=== PATIENT | female | born 1970 | race Caucasian/White ===

== ENCOUNTER 2018-10-26 13:07 | Inpatient (IN) ==
--- NOTE | 2018-10-26 14:48 | Internal Med History&Physical ---
Addendum entered and electronically signed by Keven Gomez MD 10/29/18 10:53: I have personally performed a face to face evaluation on this patient. I have r eviewed and agree with the care plan. History and Exam by me shows: For schedule and/or computer reasons, this note is a late entry. Patient was seen on the date of the initial note. Patient has a left upper extremity weakness because of her right MCA stroke. She has had history and physical reviewed with her. The initial note was not completed upon my departure on Monday. She denies anything but transient speech changes, minimal left facial droop which is now resolved and has improving left upper extremity weakness. The patient states that she has not been taking care of her diabetes and agrees that she must do so, going forward. Patient has no complaint of chest discomfort, dyspnea, orthopnea, breathing problems, palpitations, nausea or vomiting, constipation or diarrhea, other changes in bowel habits, heartburn, difficulty with urination, kidney problems or kidney stones, fevers chills or sweats, rash or itching, seizures, headache or lightheadedness, heat or cold intolerance, blood problems or anemia, or other new complaints, except as mentioned above. Review of systems is otherwise negative. Examination: (Except as mentioned above): General: In no apparent distress, alert and oriented 3. Head: Atraumatic and normocephalic. Eyes: Extraocular muscles are intact, pupils equal round and reactive to light and accommodation. Sclerae anicteric. Ears: External ears are normal to inspection and hearing is grossly normal. Nose: Patent without lesion noted. Mouth: No intraoral lesions seen. Dentition is poor with only a couple of upper teeth and 4 or 5 mandibular teeth in poor repair. Neck: Supple with trachea midline. There is no thyromegaly or adenopathy and carotids are 2+ without bruit heard. Respiratory: No use of accessory muscles. Lungs are clear throughout. Normal airflow. Cardiovascular: Regular rate and rhythm without murmur appreciated. Abdomen: Bowel sounds are normal. No hepatosplenomegaly masses or tenderness. Obese and therefore difficult to palpate deeply. Extremities: No cyanosis clubbing or edema. Neurological: A and O 3. Cranial nerves II through XII are intact. She has minimal weakness of her left lower extremity but left upper extremity is 3 out of 5 to grasp, dorsiflexion, extension. Skin: Warm and non-diaphoretic with no lesions noted. Breasts, pelvic and rectal: Not examined. We will begin therapies and assessment, as planned. We will continue her current regimen for prevention, follow diabetes, blood pressure, etc. Original Note: Date of Encounter: 10/26/18 Time of Encounter: 14:46 Assessment and Plan (1) CVA (cerebral vascular accident) Current visit: Yes Status: Acute Patient presents with a right MCA CVA with a left hemiparesis residual. Per medical records patient's strength has increased somewhat to her left upper extremity which remains 3+/5 for muscle strength. Left leg is about 4/5. Patient's right extremities are 5/5 muscle strength. No hyperreflexia. No acute neurological changes per medical records. Physical therapy evaluation pending. Continue with current plan of care. Qualifiers: CVA mechanism: unspecified Qualified Code(s): I63.9 - Cerebral infarction, unspecified (2) HTN (hypertension) Current visit: Yes Status: Acute Vital signs are stable. We will continue with current medications. We will continue to monitor Qualifiers: Hypertension type: essential hypertension Qualified Code(s): I10 - Essential (primary) hypertension (3) Diabetes Current visit: Yes Status: Acute Patient with a history of diabetes type 2. Questionable compliance as patient had a admission A1c of 14. We will continue patient on current insulin orders from [facility] and we will continue to monitor blood sugars to fingersticks before meals and at bedtime with sliding scale coverage. 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 QUINTEROS is a 48 year old female , who was transferred from [facility] after being treated for an acute right MCA CVA. Patient continues with left hemiparesis as a residual. On presentation to [facility], patient had slurred speech but currently her speech is clear and appropriate patient denies any difficulty with swallow. Patient currently appears relaxed and denies any current discomforts or shortness of breath. Per medical records patient's recovery at [facility] was uneventful except for some difficulty titrating her diabetic medications. On presentation to [facility] patient had a A1c of 14 and stated that she high glucose at home, greater than 300. Patient states a history of hypertension and otherwise has been in good health. Patient was admitted to our facility for rehabilitation secondary to weakness from her CVA and for rehabilitation of her left hemiparesis. Past Med Surg Social Fam HX - Past Medical History Source: patient Medical history: diabetes, hypertension Psychiatric history: no psych history - Past Surgical History Surgical History: no surgical history - Social History Smoking Status: Never smoker Smokeless Tobacco Status: No Alcohol use: none Drug use: none Current living situation: Home, With Family Activity Level: Independent ambulation Recent Out of Country Travel Within the Last 8 Weeks: No Exposure or Possible Exposure to Illness During Travel: No All Systems PM: A 10-system review of systems was performed and is negative for pertinent findings except as documented above in the HPI. - Constitutional Constitutional: as per HPI, no chills, no fever(s), no night sweats - EENT Eyes: as per HPI, no change in vision, no discharge, no pain, no photophobia Ears: as per HPI, no ear discharge, no ear pain, no tinnitus Nose, mouth and throat: no dysphagia, no nasal discharge, no neck pain, no sore throat - Breasts Breasts: as per HPI - Cardiovascular Cardiovascular ROS IM: as per HPI, no chest pain, no diaphoresis, no dyspnea, no lightheadedness, no palpitations, no syncope - Respiratory Respiratory: as per HPI, no cough, no dyspnea, no wheezing, no excessive phlegm production - Gastrointestinal Gastrointestinal: as per HPI, no abdominal pain, no diarrhea, no hematemesis, no hematochezia, no melena, no nausea, no vomiting - Genitourinary Genitourinary: as per HPI, no change in urinary stream, no dysuria, no flank pain, no hematuria - Musculoskeletal Musculoskeletal ROS IM: as per HPI, no numbness, no tingling - Integumentary Integumentary IM: as per HPI, no rash, no unusual bruising - Neurological Neurological ROS: as per HPI, no confusion, no convulsions, no focal weakness, no numbness, no tingling, no tremor(s) - Psychiatric Psychiatric: as per HPI - Hematologic/Lymphatic Hematologic/Lymphatic: no easy bruising - Constitutional General appearance: Present: A&O X 3, pleasant - Head Head exam: Present: atraumatic, normocephalic - Eye Eye exam: Present: PERRL, conjuntiva pink, sclera anicteric Pupils: Present: PERRL Additional comments: left eye blindness - Neck Neck exam general surgery: Present: supple, trachea midline. Absent: lymphaden opathy - Respiratory Respiratory exam: Present: CTAB. Absent: accessory muscle use, rales, rhonchi, wheezes - Cardiovascular Cardiovascular exam: Present: RRR, +S1, +S2. Absent: diastolic murmur, gallop, rubs, systolic murmur - GI/Abdominal GI/Abdominal exam: Present: normal bowel sounds, soft, no peritoneal signs. Absent: distended, tenderness - Extremities Exam Extremities exam: Present: warm, radial pulses palpable and symmetrical. A bsent: calf tenderness, cyanotic, pedal edema - Neurological Exam Neurological exam: Present: CN II-XII intact, oriented X3, pronater drift. Absent: facial droop, speech deficit Additional comments: Left hemiparesis with LUE 3+/5 and LLE 4/5. RE 5/5 MS. Left eye blindness. - Skin Skin exam: Present: dry, intact
[2018-10-26] MEDS ORDERED: D5% in Water 1,000 ML IVC PRN (15:25)
[2018-10-26] MEDS ORDERED: *HR* Dextrose 50 % in Water (Syg) 50 ML SYRINGE IVP PRN (15:25)
[2018-10-26] MEDS ORDERED: Dextrose Gel 15 GM/37.5 ML TUBE PO PRN ×2 (15:25)
[2018-10-26] MEDS: Insulin LISPRO 300 UNITS/3 ML VIAL SQ SCH ×4 (17:15→21:10)
[2018-10-26] MEDS: *HR* Metformin 500 MG TABLET PO SCH (17:16)
[2018-10-27] MEDS: *HR* Enoxaparin 40 MG/0.4 ML SYRINGE SQ SCH (05:31)
[2018-10-27 07:28] LABS: Basophils % 0.6 %; Eosinophils # 0.4 K/mcL (0.0-0.6); Eosinophils % 5.5 %; Hematocrit 32.4 % (35.3-44.9); Hemoglobin 10.7 g/dL (11.5-15.4); Immature Granulocytes % 0.3 % (0-4); Lymphocytes # 1.8 K/mcL (0.6-4.6); Lymphocytes % 26.9 %; Mean Corpuscular Hemoglobin 27.4 pg (28.0-33.3); Mean Corpuscular Volume 83.1 fL (83.0-100.0); Mean Platelet Volume 9.2 fL (9.4-12.4); Monocytes # 0.4 K/mcL (0.0-1.3); Monocytes % 6.5 %; Neutrophils # 4.1 K/mcL (1.6-8.9); Platelet Count 233 K/mcL (140-400); Red Cell Distribution Width 13.2 % (11.5-14.5); Segmented Neutrophils % 60.2 %
[2018-10-27 07:32] LABS: Prothrombin Time 10.8 Seconds (9.4-12.1)
[2018-10-27 07:35] LABS: Activated Partial Thrombo Time 32.7 Seconds (26.0-36.0)
[2018-10-27 07:42] LABS: BUN/Creatinine Ratio 21 (6-26); Blood Urea Nitrogen 12 mg/dL (6-20); Carbon Dioxide 26 mEq/L (23-29); Chloride 101 mEq/L (98-107); Glucose 235 mg/dL (70-105); Osmolality,Calculated 281 (280-300); Potassium 3.7 mEq/L (3.5-5.1); Sodium 132 mEq/L (136-145); eGFR For Non-African Americans > 60 (> 60)
[2018-10-27] MEDS: *HR* Metformin 500 MG TABLET PO SCH ×2 (08:11→16:51)
[2018-10-27] MEDS: Insulin LISPRO 300 UNITS/3 ML VIAL SQ SCH ×8 (08:11→21:21)
[2018-10-27] MEDS: Lisinopril 20 MG TABLET PO SCH (08:11)
[2018-10-27] MEDS: Aspirin 81 MG TAB.CHEW PO SCH (08:11)
[2018-10-27] MEDS ORDERED: Insulin DETEMIR 100 UNIT/ML X5UNITS SQ SCH (09:00)
[2018-10-27] MEDS ORDERED: Acetaminophen 325 MG TABLET PO ONE (13:09)
--- NOTE | 2018-10-27 15:24 | Internal Med Progress Note ---
Date of Encounter: 10/27/18 Time of Encounter: 15:00 - Assessment and plan (1) CVA (cerebral vascular accident) Current Visit: Yes Status: Acute Assessment and plan: Patient presents with a right MCA CVA with a left hemiparesis residual. Per medical records patient's strength has increased somewhat to her left upper extremity which remains 3+/5 for muscle strength. Left leg is about 4/5. Patient's right extremities are 5/5 muscle strength. No hyperreflexia. No acute neurological changes per medical records. Continue working with therapists and current plan of care. Qualifiers: CVA mechanism: unspecified Qualified Code(s): I63.9 - Cerebral infarction, unspecified (2) HTN (hypertension) Current Visit: Yes Status: Chronic Assessment and plan: Continue current meds. Qualifiers: Hypertension type: essential hypertension Qualified Code(s): I10 - Essential (primary) hypertension (3) Diabetes Current Visit: Yes Status: Chronic Assessment and plan: Patient with a history of diabetes type 2, likely uncontrolled given admission A1c of 14. Remains overall hyperglycemic here, so will increase insulin detemir to 45 units daily (from 40) and continue SSI + glucose monitoring ACHS. 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 - Time Spent With Patient less than 15 minutes - Subjective Interval history: Doing well. Worked with therapists. No concern. - Constitutional Vitals: Temp Pulse Resp BP Pulse Ox 97.8 F 97 16 129/76 99 10/27/18 06:48 10/27/18 06:56 10/27/18 06:56 10/27/18 06:56 10/27/18 06:56 General appearance: Present: A&O X 3, pleasant Exam: Gen: A&Ox3, NAD. HEENT: NCAT. Neck: No palpable lymphadenopathy or thyromegaly. CV: RRR, S1S2. No murmur. Capillary refill < 2 seconds. Pulm: CTAB. Abd: (+)BS. NDNT. Neuro: Left-sided weakness, otherwise non-focal. Skin: No rash. Ext: No pitting edema. Internal Medicine: Result - Labs CBC & Chem 7: 10/27/18 07:10 10/27/18 07:10 Labs: Short CBC 10/27/18 Range/Units 07:10 WBC 6.7 (4.3-11.1) K/mcL Hgb 10.7 L (11.5-15.4) g/dL Hct 32.4 L (35.3-44.9) % Plt Count 233 (140-400) K/mcL Neutrophils # 4.1 (1.6-8.9) K/mcL BMP 10/27/18 07:10 Sodium 132 L Potassium 3.7 Chloride 101 Carbon Dioxide 26 BUN 12 Creatinine 0.56 L Glucose 235 H Calcium 9.0 - ABG Interpretation ABG results: PT/INR, D-dimer PT 10.8 Seconds (9.4-12.1) 10/27/18 07:10 Consult Discharge Plan - Plan Referrals: NONE,PCP [Primary Care Provider] -
[2018-10-28] MEDS ORDERED: Ondansetron ODT 4 MG TAB.RAPDIS SL ONE (00:35)
[2018-10-28] MEDS: *HR* Enoxaparin 40 MG/0.4 ML SYRINGE SQ SCH (05:55)
[2018-10-28 07:06] LABS: Hematocrit 32.3 % (35.3-44.9); Hemoglobin 10.6 g/dL (11.5-15.4); Mean Corpuscular HGB Conc 32.8 g/dL (31.6-35.5); Mean Corpuscular Hemoglobin 27.4 pg (28.0-33.3); Mean Corpuscular Volume 83.5 fL (83.0-100.0); Mean Platelet Volume 9.4 fL (9.4-12.4); Platelet Count 225 K/mcL (140-400); Red Blood Count 3.87 M/mcL (3.82-4.97); Red Cell Distribution Width 13.2 % (11.5-14.5)
[2018-10-28 07:30] LABS: Albumin 3.7 g/dL (3.5-5.7); Albumin/Globulin Ratio 1.6 (1.1-2.2); Bilirubin,Direct 0.1 mg/dL (0.0-0.2); Bilirubin,Indirect 0.3 mg/dL (0.0-1.2); Bilirubin,Total 0.4 mg/dL (0.3-1.0); Globulin 2.3 g/dL (2.4-3.5)
[2018-10-28] MEDS: Aspirin 81 MG TAB.CHEW PO SCH (08:02)
[2018-10-28] MEDS: Lisinopril 20 MG TABLET PO SCH (08:02)
[2018-10-28] MEDS: *HR* Metformin 500 MG TABLET PO SCH ×2 (08:02→16:45)
[2018-10-28] MEDS: Insulin LISPRO 300 UNITS/3 ML VIAL SQ SCH ×8 (08:03→20:27)
[2018-10-28] MEDS: Insulin DETEMIR 100 UNIT/ML X5UNITS SQ SCH (08:03)
--- NOTE | 2018-10-28 13:05 | Internal Med Progress Note ---
Date of Encounter: 10/28/18 Time of Encounter: 12:00 - Assessment and plan (1) CVA (cerebral vascular accident) Current Visit: Yes Status: Acute Assessment and plan: Patient presents with a right MCA CVA with a left hemiparesis residual. Per medical records patient's strength has increased somewhat to her left upper extremity which remains 3+/5 for muscle strength. Left leg is about 4/5. Patient's right extremities are 5/5 muscle strength. No hyperreflexia. No acute neurological changes per medical records. Continue working with therapists and current plan of care. Qualifiers: CVA mechanism: unspecified Qualified Code(s): I63.9 - Cerebral infarction, unspecified (2) HTN (hypertension) Current Visit: Yes Status: Chronic Assessment and plan: Continue current meds. Qualifiers: Hypertension type: essential hypertension Qualified Code(s): I10 - Essential (primary) hypertension (3) Diabetes Current Visit: Yes Status: Chronic Assessment and plan: Patient with a history of diabetes type 2, likely uncontrolled given admission A1c of 14. Remains overall hyperglycemic here, so will increasd insulin detemir to 45 units today (from 40) and continue SSI + glucose monitoring ACHS. 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 Continue to monitor as appropriate. - Time Spent With Patient less than 15 minutes - Subjective Interval history: Doing well. Worked with therapists. No concern. - Constitutional Vitals: Temp Pulse Resp BP Pulse Ox 98.1 F 106 17 109/71 97 10/28/18 07:03 10/28/18 07:03 10/28/18 07:03 10/28/18 07:03 10/28/18 07:03 General appearance: Present: A&O X 3, pleasant Exam: Gen: A&Ox3, NAD. HEENT: NCAT. Neck: No palpable lymphadenopathy or thyromegaly. CV: RRR, S1S2. No murmur. Capillary refill < 2 seconds. Pulm: CTAB. Abd: (+)BS. NDNT. Neuro: Left-sided weakness, otherwise non-focal. Skin: No rash. Ext: No pitting edema. Internal Medicine: Result - Labs CBC & Chem 7: 10/28/18 06:55 10/27/18 07:10 Labs: Short CBC 10/28/18 Range/Units 06:55 WBC 7.8 (4.3-11.1) K/mcL Hgb 10.6 L (11.5-15.4) g/dL Hct 32.3 L (35.3-44.9) % Plt Count 225 (140-400) K/mcL Liver Function 10/28/18 Range/Units 06:55 Total Bilirubin 0.4 (0.3-1.0) mg/dL Direct Bilirubin 0.1 (0.0-0.2) mg/dL AST 15 (13-39) Units/L ALT 13 (7-52) Units/L Alkaline Phosphatase 67 (34-104) Units/L Albumin 3.7 (3.5-5.7) g/dL - ABG Interpretation ABG results: PT/INR, D-dimer PT 10.8 Seconds (9.4-12.1) 10/27/18 07:10 Consult Discharge Plan - Plan Referrals: NONE,PCP [Primary Care Provider] -
[2018-10-29] MEDS: *HR* Enoxaparin 40 MG/0.4 ML SYRINGE SQ SCH (04:18)
[2018-10-29] MEDS: Ondansetron ODT 4 MG TAB.RAPDIS SL PRN ×2 (04:51→19:31)
[2018-10-29 06:55] LABS: BUN/Creatinine Ratio 27 (6-26); Blood Urea Nitrogen 17 mg/dL (6-20); Calcium 8.5 mg/dL (8.6-10.3); Carbon Dioxide 24 mEq/L (23-29); Chloride 102 mEq/L (98-107); Glucose 192 mg/dL (70-105); Osmolality,Calculated 283 (280-300); Potassium 4.2 mEq/L (3.5-5.1); Sodium 133 mEq/L (136-145); eGFR For Non-African Americans > 60 (> 60)
[2018-10-29 07:36] LABS: Basophils % 0.3 %; Eosinophils # 0.3 K/mcL (0.0-0.6); Eosinophils % 3.5 %; Hematocrit 32.9 % (35.3-44.9); Hemoglobin 10.8 g/dL (11.5-15.4); Immature Granulocytes % 0.4 % (0-4); Lymphocytes % 20.7 %; Mean Corpuscular HGB Conc 32.8 g/dL (31.6-35.5); Mean Corpuscular Hemoglobin 27.6 pg (28.0-33.3); Mean Corpuscular Volume 83.9 fL (83.0-100.0); Mean Platelet Volume 9.7 fL (9.4-12.4); Monocytes # 0.5 K/mcL (0.0-1.3); Monocytes % 5.7 %; Neutrophils # 6.6 K/mcL (1.6-8.9); Platelet Count 270 K/mcL (140-400); Red Blood Count 3.92 M/mcL (3.82-4.97); Red Cell Distribution Width 13.4 % (11.5-14.5); Segmented Neutrophils % 69.4 %
[2018-10-29] MEDS: *HR* Metformin 500 MG TABLET PO SCH ×3 (08:40→23:32)
[2018-10-29] MEDS: Lisinopril 20 MG TABLET PO SCH (08:41)
[2018-10-29] MEDS: Aspirin 81 MG TAB.CHEW PO SCH (08:41)
[2018-10-29] MEDS: Insulin LISPRO 300 UNITS/3 ML VIAL SQ SCH ×8 (08:42→21:10)
--- NOTE | 2018-10-29 10:34 | Internal Med Progress Note ---
Addendum entered and electronically signed by Keven Gomez MD 10/29/18 13:15: I have personally performed a face to face evaluation on this patient. I have r eviewed and agree with the care plan. History and Exam by me shows: Patient with a bowel 12-18 hours of nausea, emesis, diarrhea. I told her that I suspect this is food intolerance or intestinal "flu." Because she is having loose bowel movements, we will check a C. difficile. If this is negative, she can come out of isolation. She feels that her strength is continuing to improve and her left extremities. She denies melena or hematochezia, abdominal pain, fever, chills, etc. Discussed care with other providers and/or nursing. Patient has no complaint of chest discomfort, dyspnea, orthopnea, palpitations, nausea or vomiting, constipation or diarrhea, other changes in bowel habits, difficulty with urination, rash or itching, or other new complaints, except as mentioned above. Review of systems is otherwise negative. Examination: (Except as mentioned above): General: In no apparent distress. Alert and oriented 3. Nondiaphoretic. Head: Atraumatic and normocephalic. Respiratory: No use of accessory muscles. Lungs are clear throughout. Normal airflow. Cardiovascular: Regular rate and rhythm without murmur appreciated. Abdomen: Bowel sounds are normal. No hepatosplenomegaly mass or tenderness appreciated. Obese and therefore difficult to palpate deeply. Extremities: No cyanosis clubbing or edema. Skin: Warm and non-diaphoretic with no new lesions noted. Neurologically, she still has left weakness but this is improved especially in the upper extremity, versus 3 days ago. Original Note: Date of Encounter: 10/29/18 Time of Encounter: 10:32 - Assessment and plan (1) Nausea Current Visit: Yes Status: Acute Assessment and plan: Continue Zofran as needed. Will monitor. (2) CVA (cerebral vascular accident) Current Visit: Yes Status: Acute Assessment and plan: Patient here for right MCA CVA with left hemiparesis. Continue PT and OT. Will follow progress. No new neurological deficits at this time. Follow up with neurology as scheduled. Qualifiers: CVA mechanism: unspecified Qualified Code(s): I63.9 - Cerebral infarction, unspecified (3) HTN (hypertension) Current Visit: Yes Status: Chronic Assessment and plan: Controlled with current medication. Monitor blood pressure. Qualifiers: Hypertension type: essential hypertension Qualified Code(s): I10 - Essential (primary) hypertension (4) Diabetes Current Visit: Yes Status: Chronic Assessment and plan: Controlled with insulin. Monitor fingerstick blood sugar. Will adjust medicines as necessary. 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 Also insulin-dependent diabetic. Complaining of nausea and diarrhea today. States she was able to eat small amount of breakfast. Is currently resting in bed. Denies fever, chills, shortness of breath, chest pain, abdominal pain. Denies any new neurological deficits. - Constitutional Vitals: Temp Pulse Resp BP Pulse Ox 98.0 F 92 18 104/62 98 10/29/18 08:26 10/29/18 08:26 10/29/18 08:26 10/29/18 08:26 10/29/18 08:26 General appearance: Present: cooperative, A&O X 3, pleasant, no acute distress, answers questions appropriately - Head Head exam: Present: atraumatic, normocephalic - Eye Eye exam: Present: PERRL, conjuntiva pink, sclera anicteric Pupils: Present: PERRL - Neck Neck exam general surgery: Present: supple, trachea midline. Absent: lymphadenopathy - Respiratory Respiratory exam: Present: CTAB. Absent: accessory muscle use, rales, rhonchi, wheezes - Cardiovascular Cardiovascular exam: Present: RRR, +S1, +S2. Absent: diastolic murmur, gallop, rubs, systolic murmur - GI/Abdominal GI/Abdominal exam: Present: normal bowel sounds, soft, no peritoneal signs. Absent: distended, tenderness - Extremities Exam Extremities exam: Present: warm, radial pulses palpable and symmetrical. Absent: calf tenderness, cyanotic, pedal edema Additional comments: Left upper extremity strength to\\5, left lower extremity for\\5 - Neurological Exam Neurological exam: Present: CN II-XII intact, oriented X3, no focal deficits. Absent: pronater drift, facial droop, speech deficit - Skin Skin exam: Present: dry, intact Internal Medicine: Result - Labs CBC & Chem 7: 10/29/18 06:34 10/29/18 06:34 Labs: Short CBC 10/29/18 Range/Units 06:34 WBC 9.5 (4.3-11.1) K/mcL Hgb 10.8 L (11.5-15.4) g/dL Hct 32.9 L (35.3-44.9) % Plt Count 270 (140-400) K/mcL Neutrophils # 6.6 (1.6-8.9) K/mcL BMP 10/29/18 06:34 Sodium 133 L Potassium 4.2 Chloride 102 Carbon Dioxide 24 BUN 17 Creatinine 0.63 Glucose 192 H Calcium 8.5 L - ABG Interpretation ABG results: PT/INR, D-dimer PT 10.8 Seconds (9.4-12.1) 10/27/18 07:10 Consult Discharge Plan - Plan Referrals: NONE,PCP [Primary Care Provider] -
[2018-10-29] MEDS: Insulin DETEMIR 100 UNIT/ML X5UNITS SQ SCH ×2 (13:57→21:10)
[2018-10-30] MEDS: *HR* Enoxaparin 40 MG/0.4 ML SYRINGE SQ SCH (05:48)
[2018-10-30] MEDS: Insulin LISPRO 300 UNITS/3 ML VIAL SQ SCH ×8 (07:53→21:19)
[2018-10-30] MEDS: Aspirin 81 MG TAB.CHEW PO SCH (10:21)
[2018-10-30] MEDS: Lisinopril 20 MG TABLET PO SCH (10:21)
--- NOTE | 2018-10-30 11:29 | Internal Med Progress Note ---
Date of Encounter: 10/30/18 Time of Encounter: 11:27 - Assessment and plan (1) CVA (cerebral vascular accident) Current Visit: Yes Status: Acute Assessment and plan: We will continue therapies as planned. She is making progress in current deficits. Qualifiers: CVA mechanism: unspecified Qualified Code(s): I63.9 - Cerebral infarction, unspecified (2) HTN (hypertension) Current Visit: Yes Status: Chronic Assessment and plan: Adequate control. Will follow. Qualifiers: Hypertension type: essential hypertension Qualified Code(s): I10 - Essential (primary) hypertension (3) Diabetes Current Visit: Yes Status: Chronic Assessment and plan: Patient is doing reasonably well. We will continue sliding scale insulin and fo llow. 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 (5) Normocytic anemia Current Visit: Yes Status: Acute Assessment and plan: Stable. Vital signs tolerating. - Subjective Interval history: Patient is feeling much better than yesterday. GI complaints including nausea and diarrhea have totally resolved. She has no other problems including no abdominal pain fever or chills. Patient has no complaint of chest discomfort, dyspnea, orthopnea, palpitations, nausea or vomiting, constipation or diarrhea, other changes in bowel habits, difficulty with urination, rash or itching, or other new complaints, except as mentioned above. Review of systems is otherwise negative. I discussed management of her care with nursing staff. - Constitutional Vitals: Temp Pulse Resp BP Pulse Ox 98.4 F 88 16 116/72 100 10/30/18 07:00 10/30/18 07:00 10/30/18 07:00 10/30/18 07:00 10/30/18 07:00 Exam: Examination: (Except as mentioned above): General: In no apparent distress. Alert and oriented 3. Nondiaphoretic. Head: Atraumatic and normocephalic. Respiratory: No use of accessory muscles. Lungs are clear throughout. Normal airflow. Cardiovascular: Regular rate and rhythm without murmur appreciated. Abdomen: Bowel sounds are normal. No hepatosplenomegaly mass or tenderness appreciated. Obese and therefore difficult to palpate deeply. Patient is examined upright at bedside and this also limits exam. Extremities: No cyanosis clubbing or edema. Skin: Warm and non-diaphoretic with no new lesions noted. Neurologically, the patient continues to progress with increased strength in her upper extremity. Internal Medicine: Result - Labs CBC & Chem 7: 10/29/18 06:34 10/29/18 06:34 - ABG Interpretation ABG results: PT/INR, D-dimer PT 10.8 Seconds (9.4-12.1) 10/27/18 07:10 Consult Discharge Plan - Plan Referrals: NONE,PCP [Primary Care Provider] -
[2018-10-30] MEDS: *HR* Metformin 500 MG TABLET PO SCH (17:01)
[2018-10-30] MEDS: Insulin DETEMIR 100 UNIT/ML X5UNITS SQ SCH (21:18)
[2018-10-31] MEDS: *HR* Enoxaparin 40 MG/0.4 ML SYRINGE SQ SCH (03:21)
[2018-10-31] MEDS: *HR* Metformin 500 MG TABLET PO SCH ×2 (07:12→16:24)
[2018-10-31] MEDS: Aspirin 81 MG TAB.CHEW PO SCH (07:55)
[2018-10-31] MEDS: Lisinopril 20 MG TABLET PO SCH (07:55)
[2018-10-31] MEDS: Insulin LISPRO 300 UNITS/3 ML VIAL SQ SCH ×8 (07:56→22:18)
--- NOTE | 2018-10-31 10:07 | Internal Med Progress Note ---
Addendum entered and electronically signed by Keven Gomez MD 10/31/18 12:57: I have personally performed a face to face evaluation on this patient. I have r eviewed and agree with the care plan. History and Exam by me shows: This may be a duplicated because I dictated this note earlier in the day. Patient is pleased that she is getting more function out of left upper and left lower extremity. She has not had diarrhea or nausea, today. She is feeling like she is improved, in general. Discussed care with other providers and/or nursing. Patient has no complaint of chest discomfort, dyspnea, orthopnea, palpitations, nausea or vomiting, constipation or diarrhea, other changes in bowel habits, difficulty with urination, rash or itching, or other new complaints, except as mentioned above. Review of systems is otherwise negative. Examination: (Except as mentioned above): General: In no apparent distress. Alert and oriented 3. Nondiaphoretic. Head: Atraumatic and normocephalic. Respiratory: No use of accessory muscles. Lungs are clear throughout. Normal airflow. Cardiovascular: Regular rate and rhythm without murmur appreciated. Abdomen: Bowel sounds are normal. No hepatosplenomegaly mass or tenderness appreciated. Obese and therefore difficult to palpate deeply. Patient is examined upright in chair and this also limits exam. Extremities: No cyanosis clubbing or edema. Skin: Warm and non-diaphoretic with no new lesions noted. Neurologically, she still has left upper extremity weakness but clumsiness persists markedly. ADDENDUM: Therapy expresses concern that patient is itching more and areas which previously had been closed are now opening again. She is to have repeat treatment of her scabies a week after her initial treatment. For this reason, we will prescribe permethrin lotion. Original Note: Date of Encounter: 10/31/18 Time of Encounter: 10:06 - Assessment and plan (1) CVA (cerebral vascular accident) Current Visit: Yes Status: Acute Assessment and plan: No acute issues. Recent neurological exam remains unchanged although patient does seem to have a slightly improved strength to her left upper extremity, which remains at 4/5 muscle strength. He has been ambulating with assistance of a 4 pronged cane. States that therapy has been progressing well. We will continue with current plan of care and medications. Qualifiers: CVA mechanism: unspecified Qualified Code(s): I63.9 - Cerebral infarction, unspecified (2) HTN (hypertension) Current Visit: Yes Status: Chronic Assessment and plan: Patient's vital signs have remained stable. We will continue with current medications. Qualifiers: Hypertension type: essential hypertension Qualified Code(s): I10 - Essential (primary) hypertension (3) Diabetes Current Visit: Yes Status: Chronic Assessment and plan: Patient's diabetes remains uncontrolled currently. Patient continues on sliding scale insulin and Levemir for long acting. Patient's metformin has continued to be held due to patient's diarrhea. Labs shows negative for C. difficile. Will evaluate either that patient will have her metformin restarted or will substi tute a similar oral medication. Qualifiers: Diabetes mellitus type: other specified (including CONNOR) Diabetes mellitus nursing home insulin use: unspecified nursing home insulin use status Diabetes mellitus complication status: with unspecified complications Qualified Code(s): E13.8 - Other specified diabetes mellitus with unspecified complications - Time Spent With Patient less than 15 minutes - Subjective Interval history: Patient appears relaxed and currently denies any discomforts or shortness of breath. Patient states that she feels her strength on her left arm has been improving. Patient states that physical therapy has been progressing well. No issues have been reported from nursing or therapy. - Constitutional Vitals: Temp Pulse Resp BP Pulse Ox 97.8 F 93 16 115/63 98 10/31/18 06:53 10/31/18 06:53 10/31/18 06:53 10/31/18 06:53 10/31/18 06:53 General appearance: Present: cooperative, A&O X 3, pleasant, no acute distress, answers questions appropriately - Head Head exam: Present: atraumatic, normocephalic - Eye Eye exam: Present: PERRL, conjuntiva pink, sclera anicteric Pupils: Present: PERRL - Neck Neck exam general surgery: Present: supple, trachea midline. Absent: lymphadenopathy - Respiratory Respiratory exam: Present: CTAB. Absent: accessory muscle use, rales, rhonchi, wheezes - Cardiovascular Cardiovascular exam: Present: RRR, +S1, +S2. Absent: diastolic murmur, gallop, rubs, systolic murmur - GI/Abdominal GI/Abdominal exam: Present: normal bowel sounds, soft, no peritoneal signs. Absent: distended, tenderness - Extremities Exam Extremities exam: Present: warm, radial pulses palpable and symmetrical. Absent: calf tenderness, cyanotic, pedal edema - Neurological Exam Neurological exam: Present: CN II-XII intact, oriented X3. Absent: pronater drift, facial droop, speech deficit Additional comments: Patient continues with left hemiparesis with left upper extremity and 4/5 muscle strength for proximal/distal on flexion/extension. Patient's right extremities are 5/5 muscle strength. - Skin Skin exam: Present: dry, intact Internal Medicine: Result - Labs CBC & Chem 7: 10/29/18 06:34 10/29/18 06:34 - ABG Interpretation ABG results: PT/INR, D-dimer PT 10.8 Seconds (9.4-12.1) 10/27/18 07:10 Consult Discharge Plan - Plan Referrals: NONE,PCP [Primary Care Provider] -
--- NOTE | 2018-10-31 10:18 | Psychological Evaluation ---
Date of Encounter: 10/31/18 Time of Encounter: 09:30 History of Present Illness History of present illness: Ms. Roy is a 48 year old female who was transferred from [facility] after being treated for an acute right MCA CVA. Patient continues with left hemiparesis as a residual. On presentation to [facility], patient had slurred speech but currently her speech is clear and appropriate patient denies any difficulty with swallow. Past Medical History Medical history: HTN and diabetes - Psychiatric History Psychiatric history: Reports: no psych history Home Medications and Allergies Aspirin 81 mg PO DAILY 10/26/18 [History] Atorvastatin Calcium [Lipitor] 80 mg PO HS 10/26/18 [History] Insulin Glargine [Lantus] 40 unit SQ DAILY 10/26/18 [History] Lisinopril [Zestril] 20 mg PO DAILY 10/26/18 [History] hydrOXYzine HCl [Hydroxyzine HCl] 10 mg PO 10/26/18 [History] metFORMIN [Glucophage] 1,000 mg PO BIDWM 10/26/18 [History] Allergy/AdvReac Type Severity Reaction Status Date / Time No Known Allergies Allergy Verified 10/26/18 15:18 Social History - Social History Social History: Pt 27 years and has 2 adult children in the home. High school diploma and history of LD. Has worked [employer] and [employer]. Moved from [place] in Jun 2018 to be close o family. 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 - Tobacco Use Smoking Status: Never smoker - Alcohol Use Alcohol Use: none - Drug Use Drug Use: none Cognitive/Emotional Assessment - Cognitive Ability Verbal Communication Ability: Conversational Style Problem Solving Ability: Able To Solve Simple Problems Safety Awareness: Patient Is Aware of Their Safety Level of Alertness: Alert Orientation: Person, Place, Time, Name, Age, Date of , Day of Month, Day of Week, Month, Year Ability to Follow Directions: Good Speech Pattern: Normal rate Thought Process: [place] Additional Findings: Pt had difficulty with spelling WORLD forward and backward - "never good at spelling or reading". Digits forward 3 and backward 2 - gives up easily when task perceived as difficult. Recall 3/3 immediate and 0/3 after 5min increased 1/3 with category cue. Able to perform serial 3's from 20. Knew pres, previous pres, but not governor. Insight and judgment are somewhat limited-concrete. - Emotional Status Mood Description: Euthymic/stable Affect Description: Flat Coping Ability: Unsure about ability to cope Additional Findings: Stated mood "little scared". Minimal eye contact was noted. Sleep - good. "Loves to nap". Enjoys Tv, video games, family game nights, kayaking. Stated she is quiet ad stays to herself. Assessment & Plan - Prognosis Prognosis: Good - Treatment Plan Treatment Plan/Recommendations: ST will follow for cognition. Pt did not acknowledge any emotional issues/ concerns thus will follow if issues arise while inpatient. Procedures - Participants Therapy Participant: Patient - Session Time Session Start Time: 09:30 Session Stop Time: 10:00
[2018-10-31] MEDS ORDERED: Permethrin Cream Rinse 60 ML LIQUID TP ONE (12:52)
[2018-10-31] MEDS ORDERED: Permethrin CRM 60 GM TUBE TP ONE (14:22)
[2018-10-31] MEDS: Insulin DETEMIR 100 UNIT/ML X5UNITS SQ SCH (22:12)
[2018-11-01] MEDS: *HR* Enoxaparin 40 MG/0.4 ML SYRINGE SQ SCH (04:46)
[2018-11-01] MEDS: Insulin LISPRO 300 UNITS/3 ML VIAL SQ SCH ×8 (07:30→20:15)
[2018-11-01] MEDS: *HR* Metformin 500 MG TABLET PO SCH ×2 (07:31→16:12)
[2018-11-01] MEDS: Lisinopril 20 MG TABLET PO SCH (07:32)
[2018-11-01] MEDS: Aspirin 81 MG TAB.CHEW PO SCH (07:32)
--- NOTE | 2018-11-01 10:47 | Internal Med Progress Note ---
Addendum entered and electronically signed by Keven Gomez MD 11/01/18 11:32: I have personally performed a face to face evaluation on this patient. I have r eviewed and agree with the care plan. History and Exam by me shows: The patient was evaluated by me yesterday but the note was not complete. This documentation is being completed today for that reason. Patient is persistently pleased with her progress. She denies diarrhea or abdominal discomfort. No other acute issues. Discussed care with other providers and/or nursing. Patient has no complaint of chest discomfort, dyspnea, orthopnea, palpitations, nausea or vomiting, constipation or diarrhea, other changes in bowel habits, difficulty with urination, rash or itching, or other new complaints, except as mentioned above. Review of systems is otherwise negative. Examination: (Except as mentioned above): General: In no apparent distress. Alert and oriented 3. Nondiaphoretic. Head: Atraumatic and normocephalic. Respiratory: No use of accessory muscles. Lungs are clear throughout. Normal airflow. Cardiovascular: Regular rate and rhythm without murmur appreciated. Abdomen: Bowel sounds are normal. No hepatosplenomegaly mass or tenderness appreciated. Obese and therefore difficult to palpate deeply. Extremities: No cyanosis clubbing or edema. Skin: Warm and non-diaphoretic with no new lesions noted. Original Note: Date of Encounter: 11/01/18 Time of Encounter: 10:45 - Assessment and plan (1) CVA (cerebral vascular accident) Current Visit: Yes Status: Acute Assessment and plan: No acute issues. Recent neurological exam remains unchanged although patient does seem to have a slightly improved strength to her left extremity, which remains at 4/5 muscle strength. He has been ambulating with assistance of a 4 pronged cane. States that therapy has been progressing well. We will continue with current plan of care and medications. Qualifiers: CVA mechanism: unspecified Qualified Code(s): I63.9 - Cerebral infarction, unspecified (2) HTN (hypertension) Current Visit: Yes Status: Chronic Assessment and plan: Patient's vital signs have remained stable. We will continue with current medications. Qualifiers: Hypertension type: essential hypertension Qualified Code(s): I10 - Essential (primary) hypertension (3) Diabetes Current Visit: Yes Status: Chronic Assessment and plan: Patient's diabetes is better controlled. Patient continues on sliding scale insulin and Levemir for long acting. Patient's metformin has continued to be held due to patient's diarrhea. Labs shows negative for C. difficile. Will evaluate either that patient will have her metformin restarted or will substitute a similar oral medication. 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 Patient states she continues to have some itching at several lesions sites, mostly on her abdomen. Will start patient on some when necessary Atarax so she will avoid scratching. - Time Spent With Patient less than 15 minutes - Subjective Interval history: Patient appears relaxed and currently denies any discomforts or shortness of breath. Patient does c/o slight itching to her abdomen. Patient was treated last evening for scabies, which was a f/u treatment. The original Tx was during her admission at [facility] approx. 2 wks ago. Patient states that she feels her strength on her left arm has been improving. Patient states that physical therapy has been progressing well. No issues have been reported from nursing or therapy. - Constitutional Vitals: Temp Pulse Resp BP Pulse Ox 99 F 95 18 135/80 100 11/01/18 07:34 11/01/18 07:34 11/01/18 07:34 11/01/18 07:34 11/01/18 07:34 General appearance: Present: cooperative, A&O X 3, pleasant, no acute distress, answers questions appropriately - Head Head exam: Present: atraumatic, normocephalic - Eye Eye exam: Present: PERRL, conjuntiva pink, sclera anicteric Pupils: Present: PERRL - Neck Neck exam general surgery: Present: supple, trachea midline. Absent: lymphadenopathy - Respiratory Respiratory exam: Present: CTAB. Absent: accessory muscle use, rales, rhonchi, wheezes - Cardiovascular Cardiovascular exam: Present: RRR, +S1, +S2. Absent: diastolic murmur, gallop, rubs, systolic murmur - GI/Abdominal GI/Abdominal exam: Present: normal bowel sounds, soft, no peritoneal signs. Absent: distended, tenderness - Extremities Exam Extremities exam: Present: warm, radial pulses palpable and symmetrical. Absent: calf tenderness, cyanotic, pedal edema - Neurological Exam Neurological exam: Present: CN II-XII intact, oriented X3. Absent: pronater dr ift, facial droop, speech deficit Additional comments: continued left hemiparesis with LE 4/5 MS. RE 5/5 MS. - Skin Skin exam: Present: dry, intact Internal Medicine: Result - Labs CBC & Chem 7: 10/29/18 06:34 10/29/18 06:34 - ABG Interpretation ABG results: PT/INR, D-dimer PT 10.8 Seconds (9.4-12.1) 10/27/18 07:10 Consult Discharge Plan - Plan Referrals: NONE,PCP [Primary Care Provider] -
[2018-11-01] MEDS: Insulin DETEMIR 100 UNIT/ML X5UNITS SQ SCH (20:14)
[2018-11-02] MEDS: *HR* Enoxaparin 40 MG/0.4 ML SYRINGE SQ SCH (04:12)
[2018-11-02] MEDS: Lisinopril 20 MG TABLET PO SCH (08:45)
[2018-11-02] MEDS: Aspirin 81 MG TAB.CHEW PO SCH (08:45)
[2018-11-02] MEDS: Insulin LISPRO 300 UNITS/3 ML VIAL SQ SCH ×8 (08:46→20:45)
[2018-11-02] MEDS: *HR* Metformin 500 MG TABLET PO SCH (09:07)
--- NOTE | 2018-11-02 10:17 | Internal Med Progress Note ---
Addendum entered and electronically signed by Marti Morales 11/04/18 15:23: I have personally performed a face to face evaluation on this patient. I have reviewed and agree with the care plan. Original Note: Date of Encounter: 11/02/18 Time of Encounter: 10:15 - Assessment and plan (1) CVA (cerebral vascular accident) Current Visit: Yes Status: Acute Assessment and plan: No acute issues. Recent neurological exam remains unchanged although patient does seem to have a slightly improved strength to her left extremity, which remains at 4/5 muscle strength. He has been ambulating with assistance of a 4 pronged cane. States that therapy has been progressing well. We will continue with current plan of care and medications. Qualifiers: CVA mechanism: unspecified Qualified Code(s): I63.9 - Cerebral infarction, unspecified (2) HTN (hypertension) Current Visit: Yes Status: Chronic Assessment and plan: Patient's vital signs have remained stable. We will continue with current medications. Qualifiers: Hypertension type: essential hypertension Qualified Code(s): I10 - Essential (primary) hypertension (3) Diabetes Current Visit: Yes Status: Chronic Assessment and plan: Patient's diabetes is better controlled. Patient continues on sliding scale insulin and Levemir for long acting. Patient's metformin has continued to be held due to patient's diarrhea. Labs shows negative for C. difficile. Patient states that she does not take the metformin at home due to issues with diarrhea. We will discontinue metformin at this time and increase patient's current Levemir dosing due to multiple fingersticks greater than 200. Qualifiers: Diabetes mellitus type: other specified (including CONNOR) Diabetes mellitus chcf insulin use: unspecified chcf insulin use status Diabetes mellitus complication status: with unspecified complications Qualified Code(s): E13.8 - Other specified diabetes mellitus with unspecified complications (4) Scabies Current Visit: Yes Status: Acute Assessment and plan: Patient had follow-up treatment for scabies with a residual treatment being done approximately 2 weeks prior during her admission at [facility]. Patient states she continues to have some itching at several lesions sites, mostly on her abdomen. Patient has received her follow-up treatment. Will start patient on some when necessary Atarax so she will avoid scratching. - Time Spent With Patient less than 15 minutes - Subjective Interval history: Patient appears relaxed and currently denies any discomforts or shortness of breath. Patient states that she feels her strength on her left arm has been improving. Patient states that physical therapy has been progressing well. No issues have been reported from nursing or therapy. Nurse reports the patient has no longer had loose BMs after having her metformin held. Patient states that she was on metformin at home prior to admission and refused to take the metformin due to diarrhea. - Constitutional Vitals: Temp Pulse Resp BP Pulse Ox 98.5 F 103 16 151/77 100 11/02/18 08:00 11/02/18 08:00 11/02/18 08:00 11/02/18 08:00 11/02/18 08:00 General appearance: Present: cooperative, A&O X 3, pleasant, no acute distress, answers questions appropriately - Head Head exam: Present: atraumatic, normocephalic - Eye Eye exam: Present: PERRL, conjuntiva pink, sclera anicteric Pupils: Present: PERRL - Neck Neck exam general surgery: Present: supple, trachea midline. Absent: lymphadenopathy - Respiratory Respiratory exam: Present: CTAB. Absent: accessory muscle use, rales, rhonchi, wheezes - Cardiovascular Cardiovascular exam: Present: RRR, +S1, +S2. Absent: diastolic murmur, gallop, rubs, systolic murmur - GI/Abdominal GI/Abdominal exam: Present: normal bowel sounds, soft, no peritoneal signs. Absent: distended, tenderness - Extremities Exam Extremities exam: Present: warm, radial pulses palpable and symmetrical. Absent : calf tenderness, cyanotic, pedal edema - Neurological Exam Neurological exam: Present: CN II-XII intact, oriented X3. Absent: pronater drift, facial droop, speech deficit Additional comments: Patient continues to have left hemiparesis with left extremities at 4/5 muscle strength. Right extremities are at 5/5 - Skin Skin exam: Present: dry, intact Internal Medicine: Result - Labs CBC & Chem 7: 10/29/18 06:34 10/29/18 06:34 - ABG Interpretation ABG results: PT/INR, D-dimer PT 10.8 Seconds (9.4-12.1) 10/27/18 07:10 Consult Discharge Plan - Plan Referrals: NONE,PCP [Primary Care Provider] -
[2018-11-02] MEDS: Acetaminophen 325 MG TABLET PO PRN ×2 (13:05→17:33)
[2018-11-02] MEDS: Insulin DETEMIR 100 UNIT/ML X5UNITS SQ SCH (20:46)
[2018-11-03] MEDS: *HR* Enoxaparin 40 MG/0.4 ML SYRINGE SQ SCH (05:14)
[2018-11-03 06:15] LABS: Hematocrit 30.7 % (35.3-44.9); Mean Corpuscular HGB Conc 32.6 g/dL (31.6-35.5); Mean Corpuscular Hemoglobin 27.2 pg (28.0-33.3); Mean Corpuscular Volume 83.4 fL (83.0-100.0); Mean Platelet Volume 9.6 fL (9.4-12.4); Platelet Count 254 K/mcL (140-400); Red Blood Count 3.68 M/mcL (3.82-4.97); Red Cell Distribution Width 13.1 % (11.5-14.5)
[2018-11-03 06:47] LABS: Alanine Aminotransferase 17 Units/L (7-52); Albumin 3.8 g/dL (3.5-5.7); Albumin/Globulin Ratio 1.4 (1.1-2.2); Alkaline Phosphatase 60 Units/L (34-104); Aspartate Amino Transferase 14 Units/L (13-39); BUN/Creatinine Ratio 15 (6-26); Bilirubin,Total 0.4 mg/dL (0.3-1.0); Blood Urea Nitrogen 8 mg/dL (6-20); Calcium 9.1 mg/dL (8.6-10.3); Carbon Dioxide 29 mEq/L (23-29); Chloride 105 mEq/L (98-107); Globulin 2.7 g/dL (2.4-3.5); Glucose 103 mg/dL (70-105); Magnesium 1.5 mg/dL (1.6-2.6); Osmolality,Calculated 289 (280-300); Potassium 3.8 mEq/L (3.5-5.1); Sodium 140 mEq/L (136-145); Total Protein 6.5 g/dL (6.4-8.9); eGFR For Non-African Americans > 60 (> 60)
[2018-11-03] MEDS: Insulin LISPRO 300 UNITS/3 ML VIAL SQ SCH ×8 (07:43→20:45)
[2018-11-03] MEDS: Acetaminophen 325 MG TABLET PO PRN ×2 (08:08→18:01)
[2018-11-03] MEDS: Aspirin 81 MG TAB.CHEW PO SCH (08:08)
[2018-11-03] MEDS: Lisinopril 20 MG TABLET PO SCH (08:09)
--- NOTE | 2018-11-03 14:48 | Internal Med Progress Note ---
Date of Encounter: 11/03/18 Time of Encounter: 01:48 - Subjective Interval history: - Assessment and plan (1) CVA (cerebral vascular accident) Current Visit: Yes Status: Acute Assessment and plan: No acute issues. Recent neurological exam remains unchanged although patient does seem to have a slightly improved strength to her left extremity, which remains at 4/5 muscle strength. He has been ambulating with assistance of a 4 pronged cane. States that therapy has been progressing well. We will continue with current plan of care and medications. Denies head ache. No new weakness Qualifiers: CVA mechanism: unspecified Qualified Code(s): I63.9 - Cerebral infarction, unspecified (2) HTN (hypertension) Current Visit: Yes Status: Chronic Assessment and plan: Patient's vital signs have remained stable. We will continue with current medications. Qualifiers: Hypertension type: essential hypertension Qualified Code(s): I10 - Essential (primary) hypertension (3) Diabetes Current Visit: Yes Status: Chronic Assessment and plan: Patient's diabetes is still needing better control. Levamir increased from 45 to 50. Consider other oral agent, Does not tolerate metformin at all. Patient continues on sliding scale insulin and Levemir for long acting. Has been getting about 20 units of short acting daily. did discontinue metformin due to GI effects. Qualifiers: Diabetes mellitus type: other specified (including CONNOR) Diabetes mellitus terminal operations manager insulin use: unspecified terminal operations manager insulin use status Diabetes mellitus complication status: with unspecified complications Qualified Code(s): E13.8 - Other specified diabetes mellitus with unspecified com plications (4) Scabies Current Visit: Yes Status: Acute Assessment and plan: Patient had follow-up treatment for scabies with a residual treatment being done approximately 2 weeks prior during her admission at [facility]. Patient states she continues to have some itching at several lesions sites, mostly on her abdomen. She also scratches when nervous she says. Will treat itching. Patient has received her follow-up treatment. Will start patient on some when necessary Atarax so she will avoid scratching. - Time Spent With Patient less than 15 minutes - Subjective Interval history: . Patient states that she feels her strength on her left arm has been improving. Patient states that physical therapy has been progressing well. No issues have been reported from nursing or therapy. Nurse reports the patient has no longer had loose BMs after having her metformin held. Patient states that she was on metformin at home prior to admission and refused to take the metformin due to diarrhea. This has been DC Pt has had her Levamir increased from 45 u to 50 u . Her blood sugars remain around 300. Her daughter is expecting first baby soon, a girl. - EXAM General appearance: Present: cooperative, A&O X 3, pleasant, no acute distress, answers questions appropriately - Head Head exam: Present: atraumatic, normocephalic - Eye Eye exam: Present: PERRL, conjuntiva pink, sclera anicteric Pupils: Present: PERRL - Neck Neck exam general surgery: Present: supple, trachea midline. Absent: lymphadenopathy - Respiratory Respiratory exam: Present: CTAB. Absent: accessory muscle use, rales, rhonchi, wheezes - Cardiovascular Cardiovascular exam: Present: RRR, +S1, +S2. Absent: diastolic murmur, gallop, rubs, systolic murmur - GI/Abdominal GI/Abdominal exam: Present: normal bowel sounds, soft, no peritoneal signs. Absent: distended, tenderness - Extremities Exam Extremities exam: Present: warm, radial pulses palpable and symmetrical. Absent: calf tenderness, cyanotic, pedal edema - Neurological Exam Neurological exam: Present: CN II-XII intact, oriented X3. Absent: pronater drift, facial droop, speech deficit Additional comments: Patient continues to have left hemiparesis with left extremities at 4/5 muscle strength. Right extremities are at 5/5 - Skin Skin exam: Present: dry, intact - Constitutional Vitals: Temp Pulse Resp BP Pulse Ox 98.2 F 89 18 126/68 98 11/03/18 07:20 11/03/18 07:20 11/03/18 07:20 11/03/18 07:20 11/03/18 07:20 General appearance: Present: cooperative, A&O X 3, pleasant, no acute distress, answers questions appropriately Internal Medicine: Result - Labs CBC & Chem 7: 11/03/18 05:30 11/03/18 05:30 Labs: Short CBC 11/03/18 Range/Units 05:30 WBC 6.3 (4.3-11.1) K/mcL Hgb 10.0 L (11.5-15.4) g/dL Hct 30.7 L (35.3-44.9) % Plt Count 254 (140-400) K/mcL BMP 11/03/18 05:30 Sodium 140 Potassium 3.8 Chloride 105 Carbon Dioxide 29 BUN 8 Creatinine 0.52 L Glucose 103 Calcium 9.1 Liver Function 11/03/18 Range/Units 05:30 Total Bilirubin 0.4 (0.3-1.0) mg/dL AST 14 (13-39) Units/L ALT 17 (7-52) Units/L Alkaline Phosphatase 60 (34-104) Units/L Albumin 3.8 (3.5-5.7) g/dL - ABG Interpretation ABG results: PT/INR, D-dimer PT 10.8 Seconds (9.4-12.1) 10/27/18 07:10 Consult Discharge Plan - Plan Referrals: NONE,PCP [Primary Care Provider] -
[2018-11-03] MEDS: Insulin DETEMIR 100 UNIT/ML X5UNITS SQ SCH (20:45)
[2018-11-04] MEDS: *HR* Enoxaparin 40 MG/0.4 ML SYRINGE SQ SCH (06:14)
[2018-11-04] MEDS: Insulin LISPRO 300 UNITS/3 ML VIAL SQ SCH ×8 (08:13→21:40)
[2018-11-04] MEDS: Lisinopril 20 MG TABLET PO SCH (08:14)
[2018-11-04] MEDS: Aspirin 81 MG TAB.CHEW PO SCH (08:14)
[2018-11-04] MEDS: Acetaminophen 325 MG TABLET PO PRN ×2 (08:14→21:40)
--- NOTE | 2018-11-04 13:31 | Internal Med Progress Note ---
Date of Encounter: 11/04/18 Time of Encounter: 01:29 - Subjective Interval history: - Assessment and plan (1) CVA (cerebral vascular accident) Current Visit: Yes Status: Acute Assessment and plan: No acute issues. Recent neurological exam remains unchanged although patient does seem to have a slightly improved strength to her left extremity, which remains at 4/5 muscle strength. He has been ambulating with assistance of a 4 pronged cane. States that therapy has been progressing well. We will continue with current plan of care and medications. Denies head ache. No new weakness Qualifiers: CVA mechanism: unspecified Qualified Code(s): I63.9 - Cerebral infarction, unspecified (2) HTN (hypertension) Current Visit: Yes Status: Chronic Assessment and plan: Patient's vital signs have remained stable. We will continue with current medications. Qualifiers: Hypertension type: essential hypertension Qualified Code(s): I10 - Essential (primary) hypertension (3) Diabetes Current Visit: Yes Status: Chronic Assessment and plan: Patient's diabetes is still needing better control. Will ADD Glipizide 5 mg regular po BID. Levamir increased from 45 to 50. if sugars still needing extra short acting and over 250 then increase levamir to 55 units. Does not tolerate metformin at all. Patient continues on sliding scale insulin and Levemir for long acting. Has been getting about 20 units of short acting daily. did discontinue metformin due to GI effects. Prior HbA1C over 14. Qualifiers: Diabetes mellitus type: other specified (including CONNOR) Diabetes mellitus manager terminal insulin use: unspecified manager terminal insulin use status Diabetes mellitus complication status: with unspecified complications Qualified Code(s): E13.8 - Other specified diabetes mellitus with unspecified complications (4) Scabies Current Visit: Yes Status: Acute Assessment and plan: Patient had follow-up treatment for scabies with a residual treatment being done approximately 2 weeks prior during her admission at [facility]. Patient states she continues to have some itching at several lesions sites, mostly on her abdomen. She also scratches when nervous she says. Will treat itching. Patient has received her follow-up treatment. Will start patient on some when necessary Atarax so she will avoid scratching. - Time Spent With Patient less than 15 minutes - Subjective Interval history: . Patient states that she feels her strength on her left arm has been improving. Patient states that physical therapy has been progressing well. No issues have been reported from nursing or therapy. Nurse reports the patient has no longer had loose BMs after having her metformin held. Patient states that she was on metformin at home prior to admission and refused to take the metformin due to diarrhea. This has been DC Pt has had her Levamir increased from 45 u to 50 u . Her blood sugars remain around 300. Her daughter is expecting first baby soon, a girl. - EXAM General appearance: Present: cooperative, A&O X 3, pleasant, no acute distress, answers questions appropriately - Head Head exam: Present: atraumatic, normocephalic - Eye Eye exam: Present: PERRL, conjuntiva pink, sclera anicteric Pupils: Present: PERRL - Neck Neck exam general surgery: Present: supple, trachea midline. Absent: lymphadenopathy - Respiratory Respiratory exam: Present: CTAB. Absent: accessory muscle use, rales, rhonchi, wheezes - Cardiovascular Cardiovascular exam: Present: RRR, +S1, +S2. Absent: diastolic murmur, gallop, rubs, systolic murmur - GI/Abdominal GI/Abdominal exam: Present: normal bowel sounds, soft, no peritoneal signs. Absent: distended, tenderness - Extremities Exam Extremities exam: Present: warm, radial pulses palpable and symmetrical. Absent: calf tenderness, cyanotic, pedal edema - Neurological Exam Neurological exam: Present: CN II-XII intact, oriented X3. Absent: pronater drift, facial droop, speech deficit Additional comments: Patient continues to have left hemiparesis with left extremities at 4/5 muscle strength. Right extremities are at 5/5 - Skin Skin exam: Present: dry, intact - Constitutional Vitals: Temp Pulse Resp BP Pulse Ox 97.8 F 91 15 119/75 98 11/04/18 07:29 11/04/18 07:29 11/04/18 07:29 11/04/18 07:29 11/04/18 07:29 General appearance: Present: cooperative, A&O X 3, pleasant, no acute distress, answers questions appropriately Internal Medicine: Result - Labs CBC & Chem 7: 11/03/18 05:30 11/03/18 05:30 - ABG Interpretation ABG results: PT/INR, D-dimer PT 10.8 Seconds (9.4-12.1) 10/27/18 07:10 Consult Discharge Plan - Plan Referrals: NONE,PCP [Primary Care Provider] -
[2018-11-04] MEDS: Magnesium Oxide 400 MG TABLET PO SCH (13:35)
[2018-11-04] MEDS: *HR* GlipiZIDE 5 MG TABLET PO SCH (18:01)
[2018-11-04] MEDS: Insulin DETEMIR 100 UNIT/ML X5UNITS SQ SCH (21:40)
[2018-11-05] MEDS: *HR* Enoxaparin 40 MG/0.4 ML SYRINGE SQ SCH (04:48)
[2018-11-05 05:47] LABS: Hemoglobin 10.8 g/dL (11.5-15.4); Mean Corpuscular HGB Conc 32.7 g/dL (31.6-35.5); Mean Corpuscular Hemoglobin 27.4 pg (28.0-33.3); Mean Corpuscular Volume 83.8 fL (83.0-100.0); Mean Platelet Volume 9.2 fL (9.4-12.4); Platelet Count 260 K/mcL (140-400); Red Blood Count 3.94 M/mcL (3.82-4.97)
[2018-11-05 05:48] LABS: Basophils # 0.1 K/mcL (0.0-0.2); Basophils % 0.6 %; Eosinophils # 0.5 K/mcL (0.0-0.6); Eosinophils % 5.4 %; Immature Granulocytes % 0.6 % (0-4); Lymphocytes # 2.1 K/mcL (0.6-4.6); Lymphocytes % 25.1 %; Monocytes # 0.6 K/mcL (0.0-1.3); Monocytes % 7.6 %; Neutrophils # 5.1 K/mcL (1.6-8.9); Segmented Neutrophils % 60.7 %
[2018-11-05 06:02] LABS: BUN/Creatinine Ratio 20 (6-26); Blood Urea Nitrogen 11 mg/dL (6-20); Carbon Dioxide 27 mEq/L (23-29); Chloride 104 mEq/L (98-107); Glucose 150 mg/dL (70-105); Osmolality,Calculated 282 (280-300); Potassium 4.4 mEq/L (3.5-5.1); Sodium 135 mEq/L (136-145); eGFR For Non-African Americans > 60 (> 60)
[2018-11-05] MEDS: Insulin LISPRO 300 UNITS/3 ML VIAL SQ SCH ×6 (08:07→17:25)
[2018-11-05] MEDS: Lisinopril 20 MG TABLET PO SCH (08:48)
[2018-11-05] MEDS: Aspirin 81 MG TAB.CHEW PO SCH (08:49)
[2018-11-05] MEDS: *HR* GlipiZIDE 5 MG TABLET PO SCH ×2 (08:49→17:24)
[2018-11-05] MEDS: Magnesium Oxide 400 MG TABLET PO SCH (08:49)
--- NOTE | 2018-11-05 09:22 | Internal Med Progress Note ---
Date of Encounter: 11/05/18 Time of Encounter: 09:22 - Assessment and plan (1) CVA (cerebral vascular accident) Current Visit: Yes Status: Acute Assessment and plan: We will continue therapies as planned. She continues to make slow but sure progress. Qualifiers: CVA mechanism: unspecified Qualified Code(s): I63.9 - Cerebral infarction, unspecified (2) HTN (hypertension) Current Visit: Yes Status: Chronic Assessment and plan: Adequate control. Will follow. Qualifiers: Hypertension type: essential hypertension Qualified Code(s): I10 - Essential (primary) hypertension (3) Diabetes Current Visit: Yes Status: Chronic Assessment and plan: Sugars are improving but still with occasional high readings, especially in the evening. We will continue to follow with sliding scale and current regimen. Qualifiers: Diabetes mellitus type: other specified (including CONNOR) Diabetes mellitus halfway insulin use: unspecified terminal gauger insulin use status Diabetes mellitus complication status: with unspecified complications Qualified Code(s): E13.8 - Other specified diabetes mellitus with unspecified complication s (4) Normocytic anemia Current Visit: Yes Status: Acute Assessment and plan: Well-tolerated and stable. Will follow. - Subjective Interval history: Patient is feeling feeling well and has noted continued improvement in her left upper extremity weakness. Patient has no complaint of chest discomfort, dyspnea, orthopnea, palpitations, nausea or vomiting, constipation or diarrhea, other changes in bowel habits, difficulty with urination, rash or itching, or other new complaints, except as mentioned above. Review of systems is otherwise negative. I discussed management of her care with nursing staff. - Constitutional Vitals: Temp Pulse Resp BP Pulse Ox 97.9 F 90 15 110/65 99 11/05/18 07:38 11/05/18 07:38 11/05/18 07:38 11/05/18 07:38 11/05/18 07:38 Exam: General: In no apparent distress. Alert and oriented 3. Nondiaphoretic. Head: Atraumatic and normocephalic. Respiratory: No use of accessory muscles. Lungs are clear throughout. Normal airflow. Cardiovascular: Regular rate and rhythm without murmur appreciated. Abdomen: Bowel sounds are normal. No hepatosplenomegaly mass or tenderness appreciated. Obese and therefore difficult to palpate deeply. Patient is examined upright in chair and this also limits exam. Extremities: No cyanosis clubbing or edema. Skin: Warm and non-diaphoretic with no new lesions noted. Neurologically, the patient has continued mild improvement in strength in the upper extremity, left. Internal Medicine: Result - Labs CBC & Chem 7: 11/05/18 05:40 11/05/18 05:40 Labs: Short CBC 11/05/18 Range/Units 05:40 WBC 8.4 (4.3-11.1) K/mcL Hgb 10.8 L (11.5-15.4) g/dL Hct 33.0 L (35.3-44.9) % Plt Count 260 (140-400) K/mcL Neutrophils # 5.1 (1.6-8.9) K/mcL BMP 11/05/18 05:40 Sodium 135 L Potassium 4.4 Chloride 104 Carbon Dioxide 27 BUN 11 Creatinine 0.56 L Glucose 150 H Calcium 9.0 - ABG Interpretation ABG results: PT/INR, D-dimer PT 10.8 Seconds (9.4-12.1) 10/27/18 07:10 Consult Discharge Plan - Plan Referrals: NONE,PCP [Primary Care Provider] -
[2018-11-06] MEDS: Insulin DETEMIR 100 UNIT/ML X5UNITS SQ SCH ×2 (00:02→21:02)
[2018-11-06] MEDS: Insulin LISPRO 300 UNITS/3 ML VIAL SQ SCH ×10 (00:02→21:01)
[2018-11-06] MEDS: *HR* Enoxaparin 40 MG/0.4 ML SYRINGE SQ SCH (05:28)
[2018-11-06] MEDS: Aspirin 81 MG TAB.CHEW PO SCH (08:13)
[2018-11-06] MEDS: *HR* GlipiZIDE 5 MG TABLET PO SCH ×2 (08:14→17:07)
[2018-11-06] MEDS: Lisinopril 20 MG TABLET PO SCH (08:14)
[2018-11-06] MEDS: Magnesium Oxide 400 MG TABLET PO SCH (08:14)
--- NOTE | 2018-11-06 13:18 | Internal Med Progress Note ---
Addendum entered and electronically signed by Keven Gomez MD 11/06/18 16:00: I have personally performed a face to face evaluation on this patient. I have r eviewed and agree with the care plan. History and Exam by me shows: Patient is well without complaints. I confronted her with the fact that she was found to have a bunch of junk food including high sugar snacks. I reiterated to her the importance of following careful, healthy diet without sugar. She agrees and states she will do well. I tried to put this in view of her care for others including , sons, grandchildren, etc. He is pleased with strength that continues to improve and her left extremities. Discussed care with other providers and/or nursing. Patient has no complaint of chest discomfort, dyspnea, orthopnea, palpitations, nausea or vomiting, constipation or diarrhea, other changes in bowel habits, difficulty with urination, rash or itching, or other new complaints, except as mentioned above. Review of systems is otherwise negative. Examination: (Except as mentioned above): General: In no apparent distress. Alert and oriented 3. Nondiaphoretic. Head: Atraumatic and normocephalic. Respiratory: No use of accessory muscles. Lungs are clear throughout. Normal airflow. Cardiovascular: Regular rate and rhythm without murmur appreciated. Abdomen: Bowel sounds are normal. No hepatosplenomegaly mass or tenderness appreciated. Obese and therefore difficult to palpate deeply. Extremities: No cyanosis clubbing or edema. Skin: Warm and non-diaphoretic with no new lesions noted. Neurologically, she still has more control and strength in her left upper extremity, than yesterday. Original Note: Date of Encounter: 11/06/18 Time of Encounter: 13:13 - Assessment and plan (1) CVA (cerebral vascular accident) Current Visit: Yes Status: Acute Assessment and plan: No acute issues. Recent neurological exam remains unchanged although patient do es seem to have a slightly improved strength to her left extremity, which remains at 4/5 muscle strength. He has been ambulating with assistance of a 4 pronged cane. States that therapy has been progressing well. We will continue with current plan of care and medications. Qualifiers: CVA mechanism: unspecified Qualified Code(s): I63.9 - Cerebral infarction, unspecified (2) HTN (hypertension) Current Visit: Yes Status: Chronic Assessment and plan: Patient's vital signs have remained stable. We will continue with current medications. Qualifiers: Hypertension type: essential hypertension Qualified Code(s): I10 - Essential (primary) hypertension (3) Diabetes Current Visit: Yes Status: Chronic Assessment and plan: Patient's diabetes is better controlled. Patient continues on sliding scale insulin and Levemir for long acting. Patient continues have multiple fingerstick readings greater than 200. Nurse reports patient has had poor compliance with multiple pieces of candy found in her bedside drawer. We will reinforce patient education on dietary compliance. Will evaluate patient's current coverage for titration. Qualifiers: Diabetes mellitus type: other specified (including CONNOR) Diabetes mellitus half-way insulin use: unspecified half-way insulin use status Diabetes mellitus complication status: with unspecified complications Qualified Code(s): E13.8 - Other specified diabetes mellitus with unspecified complications - Time Spent With Patient less than 15 minutes - Subjective Interval history: Patient appears relaxed and currently denies any discomforts or shortness of breath. Patient states that she feels her strength on her left arm has been improving. Patient states that physical therapy has been progressing well. No issues have been reported from nursing or therapy. - Constitutional Vitals: Temp Pulse Resp BP Pulse Ox 98.9 F 99 18 120/79 97 11/06/18 08:00 11/06/18 08:00 11/06/18 08:00 11/06/18 08:00 11/06/18 08:00 General appearance: Present: cooperative, A&O X 3, pleasant, no acute distress, answers questions appropriately - Head Head exam: Present: atraumatic, normocephalic - Eye Eye exam: Present: PERRL, conjuntiva pink, sclera anicteric Pupils: Present: PERRL - Neck Neck exam general surgery: Present: supple, trachea midline. Absent: lymphadenopathy - Respiratory Respiratory exam: Present: CTAB. Absent: accessory muscle use, rales, rhonchi, wheezes - Cardiovascular Cardiovascular exam: Present: RRR, +S1, +S2. Absent: diastolic murmur, gallop, rubs, systolic murmur - GI/Abdominal GI/Abdominal exam: Present: normal bowel sounds, soft, no peritoneal signs. Absent: distended, tenderness - Extremities Exam Extremities exam: Present: warm, radial pulses palpable and symmetrical. Absent: calf tenderness, cyanotic, pedal edema - Neurological Exam Neurological exam: Present: CN II-XII intact, oriented X3. Absent: pronater drift, facial droop, speech deficit Additional comments: Patient continues with left hemiparesis with left extremities muscle strength at 4/5. Right extremities muscle strength at 5/5. Patient continues to progress slowly with her strength on her left extremities but continues to have gross motor movement to the left upper extremity. - Skin Skin exam: Present: dry, intact Internal Medicine: Result - Labs CBC & Chem 7: 11/05/18 05:40 11/05/18 05:40 - ABG Interpretation ABG results: PT/INR, D-dimer PT 10.8 Seconds (9.4-12.1) 10/27/18 07:10 Consult Discharge Plan - Plan Referrals: NONE,PCP [Primary Care Provider] -
[2018-11-06] MEDS: Acetaminophen 325 MG TABLET PO PRN (17:07)
[2018-11-07] MEDS: *HR* Enoxaparin 40 MG/0.4 ML SYRINGE SQ SCH (05:21)
[2018-11-07] MEDS: Insulin LISPRO 300 UNITS/3 ML VIAL SQ SCH ×8 (08:32→22:03)
[2018-11-07] MEDS: Aspirin 81 MG TAB.CHEW PO SCH (08:32)
[2018-11-07] MEDS: Lisinopril 20 MG TABLET PO SCH (08:32)
[2018-11-07] MEDS: *HR* GlipiZIDE 5 MG TABLET PO SCH ×2 (08:32→17:04)
[2018-11-07] MEDS: Magnesium Oxide 400 MG TABLET PO SCH (08:32)
--- NOTE | 2018-11-07 10:31 | Internal Med Progress Note ---
Addendum entered and electronically signed by Keven Gomez MD 11/07/18 13:20: I have personally performed a face to face evaluation on this patient. I have r eviewed and agree with the care plan. History and Exam by me shows: Patient is without complaint. She states that she has not had any sugar. She denies other problems. Bowels and bladder are functioning well. Discussed care with other providers and/or nursing. Patient has no complaint of chest discomfort, dyspnea, orthopnea, palpitations, nausea or vomiting, constipation or diarrhea, other changes in bowel habits, difficulty with urination, rash or itching, or other new complaints, except as mentioned above. Review of systems is otherwise negative. Examination: (Except as mentioned above): General: In no apparent distress. Alert and oriented 3. Nondiaphoretic. Head: Atraumatic and normocephalic. Respiratory: No use of accessory muscles. Lungs are clear throughout. Normal airflow. Cardiovascular: Regular rate and rhythm without murmur appreciated. Abdomen: Bowel sounds are normal. No hepatosplenomegaly mass or tenderness appreciated. Obese and therefore difficult to palpate deeply. Patient is examined upright at bedside and this also limits exam. Extremities: No cyanosis clubbing or edema. Skin: Warm and non-diaphoretic with no new lesions noted. Discharge is anticipated in 2-3 days. Original Note: Date of Encounter: 11/07/18 Time of Encounter: 10:28 - Assessment and plan (1) CVA (cerebral vascular accident) Current Visit: Yes Status: Acute Assessment and plan: No acute issues. Recent neurological exam remains unchanged although patient does seem to have a slightly improved strength to her left extremity, which remains at 4/5 muscle strength. Patient continues to have difficulty with fine motor movement on left upper extremity, but therapy states this too has been improving. He has been ambulating with assistance of a 4 pronged cane. States that therapy has been progressing well. We will continue with current plan of care and medications. Qualifiers: CVA mechanism: unspecified Qualified Code(s): I63.9 - Cerebral infarction, unspecified (2) HTN (hypertension) Current Visit: Yes Status: Chronic Assessment and plan: Patient's vital signs have remained stable. We will continue with current medications. Qualifiers: Hypertension type: essential hypertension Qualified Code(s): I10 - Essential (primary) hypertension (3) Diabetes Current Visit: Yes Status: Chronic Assessment and plan: Patient's diabetes remains uncontrolled with multiple readings greater than 250. Nurse reports poor compliance with diet with patient continued to have Ree type snacks that are brought in by family. Patient was given education on imp ortance of dietary compliance in relation to her CVA. Patient states understanding. We will increase sliding scale coverage from low to medium coverage. We will continue with current long-acting insulin. Qualifiers: Diabetes mellitus type: other specified (including CONNOR) Diabetes mellitus senior living insulin use: unspecified senior living insulin use status Diabetes mellitus complication status: with unspecified complications Qualified Code(s): E13.8 - Other specified diabetes mellitus with unspecified complications - Time Spent With Patient less than 15 minutes - Subjective Interval history: Patient appears relaxed and currently denies any discomforts or shortness of breath. Patient states that she feels her strength on her left arm has been improving. Patient states that physical therapy has been progressing well. Patient noted to continue to have elevated glucose levels on fingersticks. Patient had been given education on compliance with diabetic diet and states understanding - Constitutional Vitals: Temp Pulse Resp BP Pulse Ox 97.6 F 100 16 116/67 98 11/07/18 09:27 11/07/18 09:27 11/07/18 09:27 11/07/18 09:27 11/07/18 09:27 General appearance: Present: cooperative, A&O X 3, pleasant, no acute distress, answers questions appropriately - Head Head exam: Present: atraumatic, normocephalic - Eye Eye exam: Present: PERRL, conjuntiva pink, sclera anicteric Pupils: Present: PERRL - Neck Neck exam general surgery: Present: supple, trachea midline. Absent: lymphad enopathy - Respiratory Respiratory exam: Present: CTAB. Absent: accessory muscle use, rales, rhonchi, wheezes - Cardiovascular Cardiovascular exam: Present: RRR, +S1, +S2. Absent: diastolic murmur, gallop, rubs, systolic murmur - GI/Abdominal GI/Abdominal exam: Present: normal bowel sounds, soft, no peritoneal signs. Absent: distended, tenderness - Extremities Exam Extremities exam: Present: warm, radial pulses palpable and symmetrical. Absent: calf tenderness, cyanotic, pedal edema - Neurological Exam Neurological exam: Present: CN II-XII intact, oriented X3. Absent: pronater drift, facial droop, speech deficit Additional comments: Patient continues to have left hemiparesis with left extremities and 4/5 and right extremities at 5/5 muscle strength. Patient continues to have difficulty with fine motor movement on left upper extremity. - Skin Skin exam: Present: dry, intact Internal Medicine: Result - Labs CBC & Chem 7: 11/05/18 05:40 11/05/18 05:40 - ABG Interpretation ABG results: PT/INR, D-dimer PT 10.8 Seconds (9.4-12.1) 10/27/18 07:10 Consult Discharge Plan - Plan Referrals: NONE,PCP [Primary Care Provider] -
[2018-11-07] MEDS: Insulin DETEMIR 100 UNIT/ML X5UNITS SQ SCH (21:06)
[2018-11-08] MEDS: *HR* Enoxaparin 40 MG/0.4 ML SYRINGE SQ SCH (05:03)
[2018-11-08] MEDS: Insulin LISPRO 300 UNITS/3 ML VIAL SQ SCH ×8 (08:10→21:42)
[2018-11-08] MEDS: Magnesium Oxide 400 MG TABLET PO SCH (08:12)
[2018-11-08] MEDS: Aspirin 81 MG TAB.CHEW PO SCH (08:12)
[2018-11-08] MEDS: Lisinopril 20 MG TABLET PO SCH (08:12)
[2018-11-08] MEDS: *HR* GlipiZIDE 5 MG TABLET PO SCH ×2 (08:12→17:36)
--- NOTE | 2018-11-08 09:35 | Internal Med Progress Note ---
Addendum entered and electronically signed by Keven Gomez MD 11/08/18 12:00: I have personally performed a face to face evaluation on this patient. I have r eviewed and agree with the care plan. History and Exam by me shows: Patient is without complaint. She is pleased to be able to get to go home tomorrow. She denies problems. Bowels and bladder are functioning well. She is pleased that she is gaining more strength and coordination of her left upper extremity. Discussed care with other providers and/or nursing. Patient has no complaint of chest discomfort, dyspnea, orthopnea, palpitations, nausea or vomiting, constipation or diarrhea, other changes in bowel habits, difficulty with urination, rash or itching, or other new complaints, except as mentioned above. Review of systems is otherwise negative. Examination: (Except as mentioned above): General: In no apparent distress. Alert and oriented 3. Nondiaphoretic. Head: Atraumatic and normocephalic. Respiratory: No use of accessory muscles. Lungs are clear throughout. Normal airflow. Cardiovascular: Regular rate and rhythm without murmur appreciated. Abdomen: Bowel sounds are normal. No hepatosplenomegaly mass or tenderness appreciated. Obese and therefore difficult to palpate deeply. Patient is examined upright at bedside and this also limits exam. Extremities: No cyanosis clubbing or edema. Skin: Warm and non-diaphoretic with no new lesions noted. Neurologically, the patient has still some weakness but minimal at the left lower extremity. Left upper extremity is markedly discoordinated but strength continues to improve. Anticipate discharge tomorrow. Original Note: Date of Encounter: 11/08/18 Time of Encounter: 09:34 - Assessment and plan (1) CVA (cerebral vascular accident) Current Visit: Yes Status: Acute Assessment and plan: No acute issues. Recent neurological exam remains unchanged although patient does seem to have a slightly improved strength to her left extremity, which remains at 4/5 muscle strength. Patient continues to have difficulty with fine motor movement on left upper extremity, but therapy states this too has been im proving. We will continue with current plan of care and medications. Qualifiers: CVA mechanism: unspecified Qualified Code(s): I63.9 - Cerebral infarction, unspecified (2) HTN (hypertension) Current Visit: Yes Status: Chronic Assessment and plan: Patient's vital signs have remained stable. We will continue with current medications. Qualifiers: Hypertension type: essential hypertension Qualified Code(s): I10 - Essential (primary) hypertension (3) Diabetes Current Visit: Yes Status: Chronic Assessment and plan: Patient's diabetes remains uncontrolled with multiple readings greater than 250. Patient with increased sliding scale to moderate coverage with a slight decrease in fingersticks noted overnight. We will continue with current long- acting insulin. 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 Patient states that she feels her strength on her left arm has been imp roving. Patient states that physical therapy has been progressing well. Patient noted to continue to have elevated glucose levels on fingersticks. Patient had been given education on compliance with diabetic diet and states understanding - Constitutional Vitals: Temp Pulse Resp BP Pulse Ox 97.9 F 94 16 121/81 99 11/08/18 07:00 11/08/18 07:00 11/08/18 07:00 11/08/18 07:00 11/08/18 07:00 General appearance: Present: cooperative, A&O X 3, pleasant, no acute distress, answers questions appropriately - Head Head exam: Present: atraumatic, normocephalic - Eye Eye exam: Present: PERRL, conjuntiva pink, sclera anicteric Pupils: Present: PERRL - Neck Neck exam general surgery: Present: supple, trachea midline. Absent: lymphadenopathy - Respiratory Respiratory exam: Present: CTAB. Absent: accessory muscle use, rales, rhonchi, wheezes - Cardiovascular Cardiovascular exam: Present: RRR, +S1, +S2. Absent: diastolic murmur, gallop, rubs, systolic murmur - GI/Abdominal GI/Abdominal exam: Present: normal bowel sounds, soft, no peritoneal signs. Absent: distended, tenderness - Extremities Exam Extremities exam: Present: warm, radial pulses palpable and symmetrical. Absent: calf tenderness, cyanotic, pedal edema - Neurological Exam Neurological exam: Present: CN II-XII intact, oriented X3. Absent: pronater drift, facial droop, speech deficit Additional comments: Patient with left hemiparesis with left extremity about 4/5 muscle strength and right extremities at 5/5 muscle strength. Patient continues to have poor fine motor movement to left hand - Skin Skin exam: Present: dry, intact Internal Medicine: Result - Labs CBC & Chem 7: 11/05/18 05:40 11/05/18 05:40 - ABG Interpretation ABG results: PT/INR, D-dimer PT 10.8 Seconds (9.4-12.1) 10/27/18 07:10 Consult Discharge Plan - Plan Referrals: NONE,PCP [Primary Care Provider] -
[2018-11-08] MEDS: Acetaminophen 325 MG TABLET PO PRN (17:36)
[2018-11-08] MEDS: Insulin DETEMIR 100 UNIT/ML X5UNITS SQ SCH (21:42)
[2018-11-09] MEDS: Acetaminophen 325 MG TABLET PO PRN ×2 (02:23→12:27)
[2018-11-09 07:12] VITALS: BP 103/68
[2018-11-09] MEDS: Insulin LISPRO 300 UNITS/3 ML VIAL SQ SCH ×4 (08:56→12:28)
[2018-11-09] MEDS: Aspirin 81 MG TAB.CHEW PO SCH (08:57)
[2018-11-09] MEDS: Magnesium Oxide 400 MG TABLET PO SCH (08:57)
[2018-11-09] MEDS: *HR* GlipiZIDE 5 MG TABLET PO SCH (08:57)
[2018-11-09] MEDS: Lisinopril 20 MG TABLET PO SCH (08:57)
--- NOTE | 2018-11-09 10:43 | Discharge Summary ---
Addendum entered and electronically signed by Keven Gomez MD 11/09/18 12:30: I have personally performed a face to face evaluation on this patient. I have r eviewed and agree with the care plan. History and Exam by me shows: Patient has no complaints. She has no questions. I reiterated the importance of her avoiding carbohydrates, especially white carbohydrates and sugar. She is pleased to be going home and is still feeling clumsy but has increasing strength in her left upper extremity and lower extremity, as before. Bowels and bladder are functioning well. Discussed care with other providers and/or nursing. Patient has no complaint of chest discomfort, dyspnea, orthopnea, palpitations, nausea or vomiting, constipation or diarrhea, other changes in bowel habits, difficulty with urination, rash or itching, or other new complaints, except as mentioned above. Review of systems is otherwise negative. Examination: (Except as mentioned above): General: In no apparent distress. Alert and oriented 3. Nondiaphoretic. Head: Atraumatic and normocephalic. Respiratory: No use of accessory muscles. Lungs are clear throughout. Normal airflow. Cardiovascular: Regular rate and rhythm without murmur appreciated. Abdomen: Bowel sounds are normal. No hepatosplenomegaly mass or tenderness appreciated. Obese and therefore difficult to palpate deeply. Patient is examined upright in chair and this also limits exam. Extremities: No cyanosis clubbing or edema. Skin: Warm and non-diaphoretic with no new lesions noted. Neurologically, the patient is still gaining strength, as above. She has nearly normal grasp and strength of extension at the wrist but remains clumsy. Discharge plan is as below. I reiterated the importance of following her precautions, not falling, glucose control and hopeful prevention of future stroke. Original Note: Orders not resulted at time of discharge: Pending orders 11/12/18 04:00 Basic Metabolic Panel MO Complete Blood Count [HEME] MO 11/19/18 04:00 Basic Metabolic Panel MO Complete Blood Count [HEME] MO Date of Encounter: 11/09/18 Time of Encounter: 10:39 - Discharge Diagnosis (1) CVA (cerebral vascular accident) Priority: Primary Status: Acute Comments: Patient experienced an ischemic stroke and was treated at [facility] and then transferred to this facility for further rehabilitation due to her left hemiparesis and generalized weakness. Patient also with a history of uncontrolled diabetes with her admission A1c at [facility] greater than 14. Patient progressed well with physical therapy during her stay with her strength to her left hemiparesis increasing to the current 4/5 muscle strength on left extremities and 5/5 muscle strength on right extremities. Patient continues to have some difficulty with fine motor movement on left arm and hand. Patient will continue her physical therapy to outpatient services at [facility]. She does continue follow-up with neurology and PCP. Scripts will be sent for only medication Qualifiers: CVA mechanism: unspecified Qualified Code(s): I63.9 - Cerebral infarction, unspecified (2) HTN (hypertension) Priority: Secondary Status: Chronic Comments: Patient's vital signs remained stable during her stay at this facility. We will continue on current medications with prescriptions provided at discharge. Patient to continue follow-up with PCP Qualifiers: Hypertension type: essential hypertension Qualified Code(s): I10 - Essential (primary) hypertension (3) Diabetes Priority: Secondary Status: Chronic Comments: Patient's diabetes remains uncontrolled. Patient showed noncompliance with medications prior to admission with her admission A1c at [facility] greater than 14. Patient states that she did not take her metformin at home because it caused her diarrhea. Metformin has been discontinued during her stay at this facility due to same results. Patient noted to be noncompliant with diet with multiple pieces of candy found in her bedside table, which was brought in by family members. Patient with multiple fingerstick readings greater than 250, usually during the evening hours. Her Levemir has been titrated and patient continues with sliding scale coverage with Humalog. We will continue patient on Humalog for sliding scale coverage and before meals dosing. Will continue patient on current Levemir dosing. Patient is to follow-up with PCP at discharge. Qualifiers: Diabetes mellitus type: other specified (including CONNOR) Diabetes mellitus detention insulin use: unspecified detention insulin use status Diabetes mellitus complication status: with unspecified complications Qualified Code(s): E13.8 - Other specified diabetes mellitus with unspecified complicatio ns Hospital course: Ms. Roy is a 48 year old female, who was transferred from [facility] after being treated for an acute right MCA CVA. Patient continues with left hemiparesis as a residual, which has improved in strength to present for/5 muscle strength on left extremities. On presentation to [facility], patient had slurred speech but currently her speech is clear and appropriate patient denies any difficulty with swallow. Patient currently appears relaxed and denies any current discomforts or shortness of breath. Per medical records patient's recovery at [facility] was uneventful except for some difficulty titrating her diabetic medications. On presentation to [facility] patient had a A1c of 14 and stated that she high glucose at home, greater than 300. Patient states a history of hypertension and diabetes, otherwise has been in good health. Patient was admitted to our facility for rehabilitation secondary to weakness from her CVA and for rehabilitation of her left hemiparesis. Patient's strength with left extremities has increased to 4/5 muscle strength and right extremities remain at 5/5 muscle strength. Patient with no difficulties with swallow during her stay at this facility. This remains uncontrolled with multiple readings greater than 300 easily during evening hours. He with poor dietary compliance with multiple times having candy and snacks found in her room that was brought in by family members. Patient's vital signs remained stable. Patient regressed well with physical therapy and is to continue her physical therapy as an outpatient through [facility] services. Patient is continue follow-up with PCP and neurology after discharge. Discharge discussed with: patient Time spent discussing smoking cessation with patient: 3 to 10 minutes - Time Spent with Patient Total time spent providing and/or coordinating discharge services: Time spent: Less than 30 minutes - Discharge Medications Prescriptions: No Action metFORMIN [Glucophage] 1,000 mg PO BIDWM Lisinopril [Zestril] 20 mg PO DAILY Atorvastatin Calcium [Lipitor] 80 mg PO HS Aspirin 81 mg PO DAILY hydrOXYzine HCl [Hydroxyzine HCl] 10 mg PO Insulin Glargine [Lantus] 40 unit SQ DAILY Home Medications: Aspirin 81 mg PO DAILY 10/26/18 [History] Atorvastatin Calcium [Lipitor] 80 mg PO HS 10/26/18 [History] Insulin Glargine [Lantus] 40 unit SQ DAILY 10/26/18 [History] Lisinopril [Zestril] 20 mg PO DAILY 10/26/18 [History] hydrOXYzine HCl [Hydroxyzine HCl] 10 mg PO 10/26/18 [History] metFORMIN [Glucophage] 1,000 mg PO BIDWM 10/26/18 [History] Allergies/Adverse Reactions: Allergy/AdvReac Type Severity Reaction Status Date / Time No Known Allergies Allergy Verified 10/26/18 15:18 Date of admission: 10/26/18 14:41 Primary care physician: PCP NONE Consults: 10/26/18 15:19 Consult to Occupational Therapy [CONS] Routine Comment: Evaluate, develop and implement POC Reason for Consult: Right CVA Does patient have active BEDREST order?: No Is patient medically & hemodynamically stable?: Yes Consult to Physical Therapy [CONS] Routine Comment: Evaluate, develop and implement POC Reason for Consult: Right CVA Does patient have active BEDREST order?: No Is patient medically & hemodynamically stable?: Yes Consult to Recreational Therapy [CONS] Routine Comment: Evaluate, develop and implement POC Consult to Cable [employer] [CONS] Routine Reason for SW Consult: Right CVA 10/26/18 16:17 Consult to Speech Therapy [CONS] Routine Comment: Evaluate, develop and implement POC Reason for Consult: Right CVA Call Completed: No 10/29/18 14:42 Consult to Psychology [CONS] Routine Consulting Provider: Adriana Monaco Reason for Consult: Possible depression; adjustment disorder r/t cva Call Completed: No Discharging clinician: Keven Gomez - Constitutional Vitals: Temp Pulse Resp BP Pulse Ox 97.7 F 93 16 103/68 98 11/09/18 07:10 11/09/18 07:10 11/09/18 07:10 11/09/18 07:10 11/09/18 07:10 General appearance: Present: cooperative, A&O X 3, pleasant, no acute distress, answers questions appropriately - Head Head exam: Present: atraumatic, normocephalic - Eye Eye exam: Present: PERRL, conjuntiva pink, sclera anicteric Pupils: Present: PERRL - Neck Neck exam general surgery: Present: supple, trachea midline. Absent: lymphadenopathy - Respiratory Respiratory exam: Present: CTAB. Absent: accessory muscle use, rales, rhonchi, wheezes - Cardiovascular Cardiovascular exam: Present: RRR, +S1, +S2. Absent: diastolic murmur, gallop, rubs, systolic murmur - GI/Abdominal GI/Abdominal exam: Present: normal bowel sounds, soft, no peritoneal signs. Absent: distended, tenderness - Extremities Exam Extremities exam: Present: warm, radial pulses palpable and symmetrical. Absent: calf tenderness, cyanotic, pedal edema - Neurological Exam Neurological exam: Present: CN II-XII intact, oriented X3. Absent: pronater drift, facial droop, speech deficit Additional comments: Patient continues a left hemiparesis with left extremities are 4/5 muscle strength in right extremities at 5/5 muscle strength. Patient continues with poor fine motor control on left hand. - Skin Skin exam: Present: dry, intact - Patient Status Disposition: Home, Self-Care Condition: Good Functional capacity at discharge: uses cane/walker Overall status at discharge: patient is progressing back to baseline - Discharge Instructions Follow Up With: NONE,PCP [Primary Care Provider] - - Diet and Activity Activity: ambulate only with your walker, as per physical therapy, increase activity as tolerated Diet: diabetic diet, low fat, low cholesterol, low salt diet
== END 2018-11-09 12:30 | disposition home or self-care (01) | DRG 57 ==
LOC: INPGRE 14:41